=== PATIENT | female | born 1930 | race Asian ===

== ENCOUNTER 2016-07-06 17:18 | Inpatient (IN) | payer MEDICARE, OTHER ==
[~2016-07-06] VITALS: Ht 162.6 cm; Wt 61.3 kg
[2016-07-06 18:13] LABS: ABG A-A DIFF O2 378.8 mmHg (10-20.0); ABG BASE EXCESS -13.5 mmol/L (-2.0-3.0); ABG HCO3 13.9 mmol/L (22.0-26.0); ABG OXYHEMOGLOBIN 97.8 % (94.0-100.0); TEMPERATURE, FAHRENHEIT, BG 98.6 FAHREN (96.0-98.6)
[2016-07-06 18:14] LABS: HEMATOCRIT 28.6 % (36-46); MEAN CORPUSCULAR HEMOGLOBIN 28.4 pg (26.0-34.0); MEAN CORPUSCULAR HGB CONC 31.5 G/dL (31.0-37.0); MEAN CORPUSCULAR VOLUME 90 fL (80-100); PLATELET COUNT (AUTO) 387 K/uL (150-450); RED BLOOD CELL COUNT(AUTO) 3.17 MIL/uL (4.00-5.20); RED CELL DISTRIBUTION WIDTH 17.7 % (11.5-14.5); WHITE BLOOD COUNT (AUTO) 18.9 K/uL (4.5-11.0)
[2016-07-06 18:15] LABS: ABG PCO2 70 mmHg (35-45); ABG PH 7.014 (7.35-7.450); ALLEN TEST, BLOOD GAS Positive; IPAP, BG 12 cm H2O
[2016-07-06] MEDS ORDERED: HUMLIS7525 SQ (18:16)
[2016-07-06] MEDS ORDERED: OMEP20 PEG (18:16)
[2016-07-06] MEDS ORDERED: CLON.1 PEG (18:16)
[2016-07-06] MEDS ORDERED: VITAD1000 PEG (18:16)
[2016-07-06] MEDS ORDERED: ASA3 PEG (18:16)
[2016-07-06] MEDS ORDERED: CYAN500 PEG (18:16)
[2016-07-06] MEDS ORDERED: AMLO-511 PEG (18:16)
[2016-07-06] MEDS ORDERED: ASCO500 PEG (18:16)
[2016-07-06] MEDS ORDERED: [UNRECOGNIZED DRUG - CODE] PEG (18:16)
[2016-07-06] MEDS ORDERED: FISH1CAP27 PEG (18:16)
[2016-07-06] MEDS ORDERED: THIA100T75 PEG (18:16)
[2016-07-06 18:19] LABS: ANION GAP 6 mmol/L (8-16); CALCIUM, TOTAL 8.5 mg/dL (8.8-10.5); CARBON DIOXIDE 21 mmol/L (22-29); CHLORIDE 117 mmol/L (98-107); CREATININE 4.09 mg/dL (0.60-1.30); GLOMERULAR FILTR. RATE CALC 10 mL/min (>60); POTASSIUM 3.6 mmol/L (3.5-5.1); SODIUM SERUM 144 mmol/L (136-145); UREA NITROGEN, BLOOD 63 mg/dL (7-18)
[2016-07-06 18:20] LABS: INR 1.1 (0.9-1.1); PROTHROMBIN TIME 11.7 SEC (9.4-11.6)
[2016-07-06 18:26] LABS: TROPONIN I 0.12 ng/mL (0.00-0.05)
[2016-07-06 18:44] LABS: BAND NEUTROPHILS % (MANUAL) 7 % (1-5); LYMPHOCYTES % (MANUAL) 5 % (22-44); RBC MORPHOLOGY COMMENT ABNORMAL R; TOTAL CELLS COUNTED 100
[2016-07-06] MEDS ORDERED: SODIUM CHLORIDE 0.9% 1,000 ML IV ONE ×2 (18:45→23:30)
[2016-07-06] MEDS ORDERED: PIPERACILLIN/TAZO 3.375 GM/D5W 50 ML IV ONE (18:45)
[2016-07-06] MEDS ORDERED: SODIUM BICARBONATE [ADULT] 8.4% 50 MEQ/50 ML SYRINGE IVP ONE (18:45)
[2016-07-06] MEDS ORDERED: ASPIRIN 81 MG CHEWABLE TABLET PO ONE (18:45)
[2016-07-06 18:51] LABS: ALANINE AMINOTRANSFERASE 12 U/L (12-78); ALBUMIN 1.9 g/dL (3.4-5.0); ASPARTATE AMINOTRANSFERASE 13 U/L (15-37); BILIRUBIN,TOTAL 0.2 mg/dL (0.1-1.0); CREATINE KINASE MB 5.8 ng/mL (0-5); CREATINE KINASE, TOTAL 75 U/L (26-192); TOTAL PROTEIN, SERUM 7.3 g/dL (6.4-8.2)
[2016-07-06 19:03] LABS: LACTIC ACID 2.2 mmol/L (0.4-2.0)
[2016-07-06 19:15] LABS: APPEARANCE,URINE CLOUDY (CLEAR); GLUCOSE, URINE (UA) >=1000 mg/dL (NEGATIVE); KETONES,URINE NEGATIVE (NEGATIVE); LEUKOCYTE ESTERASE ,URINE NEGATIVE (NEGATIVE); OCCULT BLOOD,URINE SMALL (NEGATIVE); PH,URINE 5.5 (5.0-8.0); PROTEIN,URINE SEE CONFIRM (NEGATIVE)
[2016-07-06 19:19] LABS: ADD UA MICROSCOPIC YES
[2016-07-06 19:23] LABS: SULFOSALICYLIC ACID,URINE 4+ (Negative)
[2016-07-06 19:24] LABS: SQUAMOUS EPITHELIAL CELL,UR Rare /LPF (None Seen)
[2016-07-06 19:25] LABS: COARSE GRANULAR CASTS,URINE 0-2 /LPF (None Seen)
[2016-07-06] MEDS ORDERED: 0.9% SODIUM CHLORIDE 10 ML SYRINGE IVP PRN (19:45)
[2016-07-06] MEDS ORDERED: ONDANSETRON HCL 4 MG/2 ML VIAL IVP PRN (19:45)
[2016-07-06] MEDS ORDERED: ACETAMINOPHEN 325 MG TABLET PO PRN ×2 (19:45→20:45)
[2016-07-06 20:04] LABS: REFLEX LACTIC ACID? YES YES
[2016-07-06] MEDS ORDERED: SODIUM CHLORIDE 0.45% 1,000 ML IV SCH (20:45)
[2016-07-06] MEDS ORDERED: BISACODYL 10 MG RECTAL RECTAL SUPPOSITORY PR PRN (20:45)
[2016-07-06] MEDS ORDERED: DOCUSATE SODIUM 100 MG CAPSULE PO SCH (21:00)
[2016-07-06] MEDS ORDERED: VANCOMYCIN HCL 1 GM/D5% WATER 200 ML IV PRN (21:00)
[2016-07-06] MEDS ORDERED: HEPARIN SODIUM,PORCINE 5,000 UNITS/ML VIAL SQ SCH (21:00)
[2016-07-06] MEDS ORDERED: VANCOMYCIN HCL 1.25 GM in DEXTROSE 5%-WATER 250 ML IV ONE (21:00)
[2016-07-06 22:48] VITALS: BP 129/53
[2016-07-07] MEDS ORDERED: SODIUM CHLORIDE 0.9% 100 ML ONE (00:09)
[2016-07-07] MEDS: PIPERACILLIN SODIUM/TAZOBACTAM 2.25 GM in DEXTROSE 5%-WATER 50 ML IV SCH ×2 (00:13→05:26)
[2016-07-07] MEDS ORDERED: 0.9% SODIUM CHLORIDE 5 ML NEB SOLUTION NEB ONE (00:21)
[2016-07-07] MEDS: ALBUTEROL SULFATE 2.5 MG/0.5 ML NEB SOLUTION NEB SCH ×2 (00:27→02:57)
[2016-07-07] MEDS: IPRATROPIUM BROMIDE 0.5 MG/2.5 ML NEB SOLUTION NEB SCH ×2 (00:27→02:57)
[2016-07-07 05:19] VITALS: BP 70/26
[2016-07-07] MEDS ORDERED: PANTOPRAZOLE SODIUM 40 MG/VIAL IVP SCH (09:00)
== END 2016-07-07 06:40 | disposition expired | DRG 871 ==
LOC: EMS 17:20 → 5N 19:56
PROVIDERS: ADMIT Internal Medicine; ATTEND Internal Medicine
PROC: 5A09357 Assistance with Respiratory Ventilation, Less than 24 Consecutive Hours, Continuous Positive Airway Pressure (ICD-10-PCS; principal; 2016-07-06)
DX: A41.9 Sepsis, unspecified organism (principal); J96.01 Acute respiratory failure with hypoxia; J69.0 Pneumonitis due to inhalation of food and vomit; E43 Unspecified severe protein-calorie malnutrition; J96.02 Acute respiratory failure with hypercapnia; N17.9 Acute kidney failure, unspecified; I69.351 Hemiplegia and hemiparesis following cerebral infarction affecting right dominant side; Z66 Do not resuscitate; E11.9 Type 2 diabetes mellitus without complications; I10 Essential (primary) hypertension; D64.9 Anemia, unspecified; F03.90 Unspecified dementia, unspecified severity, without behavioral disturbance, psychotic disturbance, mood disturbance, and anxiety; I69.391 Dysphagia following cerebral infarction; R13.10 Dysphagia, unspecified; Z93.3 Colostomy status; Z68.23 Body mass index [BMI] 23.0-23.9, adult; Z74.01 Bed confinement status; Z93.1 Gastrostomy status; Z79.82 Long term (current) use of aspirin; Z79.4 Long term (current) use of insulin; Z79.899 Other long term (current) drug therapy
CPT/HCPCS: 51702; 70450; 82805; 83605; 87040; 87081; 87086; 93005; 94640; 94660; 96361; 96365; 96372; 96375; 99291; J1644; J2543; J3370; J3490; J7030; J7050; J7060